=== PATIENT | female | born 1965 | race Caucasian/White ===

== ENCOUNTER 2018-01-23 08:00 | Inpatient (IN) | payer OTHER ==
[2018-01-23 09:44] LABS: Urine Appearance CLEAR; Urine Bilirubin NEGATIVE (NEG); Urine Blood TRACE (NEG); Urine Color YELLOW; Urine Glucose NEGATIVE (NEG); Urine Protein NEGATIVE (NEG); Urine Urobilinogen 0.2 mg/dL (0.2-1.0)
[2018-01-23 09:46] LABS: Urine Microscopic Reflex ORDER UMIC
[2018-01-23 09:50] LABS: Absolute Lymphocytes (CBC) 1.6 K/uL (0.7-4.9); Absolute Monocytes 0.4 K/uL (0.1-1.3); Absolute Neutrophil 3.5 K/uL (1.8-8.0); Basophils % 1.1 % (0-1.3); Hematocrit 38.7 % (36.0-45.0); Lymphocytes % 27.8 % (15.3-44.8); MCH 29.6 pg (27.0-35.0); MCV 87.9 fL (80-100); MPV 7.9 fL (7.6-11.3); Monocytes % 6.5 % (3.3-12.3)
[2018-01-23 09:55] LABS: Potassium 4.1 mmol/L (3.5-5.1)
[2018-01-23 09:56] LABS: Protime INR 1.04
[2018-01-23 10:00] LABS: Urine Bacteria 20-50 /HPF (<20); Urine Culture Reflex Order REFLEXED; Urine Mucus 1+ /HPF (NONE SEEN)
--- NOTE | 2018-01-23 10:36 | RAD REPORT ---
EXAM DESCRIPTION: RAD - Chest Pa And Lat (2 Views) - 01/23/2018 9:53 am CLINICAL HISTORY: preop Chest pain. COMPARISON: Chest Pa And Lat (2 Views) dated 05/26/2016; CHEST SINGLE VIEW dated 01/07/2014; CHEST PA AND LAT 2 VIEW dated 10/23/2008; CHEST PA AND LAT 2 VIEW dated 08/11/2004 FINDINGS: The lungs are clear. The heart is normal in size. No displaced fractures. Gastric banding noted. IMPRESSION: No acute or concerning finding suspected.
--- NOTE | 2018-01-23 12:10 | EKG ---
Test Date: 2018-01-23 Test Time: 09:37:51 [place] Cutter: JHOAN MEASUREMENT RESULTS: Intervals: Rate: 68 WI: 148 QRSD: 74 QT: 420 QTc: 446 [place]: P: 35 WI: 148 QRS: 21 T: 22 INTERPRETIVE STATEMENTS: Normal sinus rhythm Low voltage QRS Borderline ECG Compared to ECG 01/07/2014 12:47:19 Low QRS voltage now present Electronically Signed On 01-23-18 12:09:51 CDT by Kenton Patel
--- OUTSIDE RECORDS SUMMARY | 2018-01-26 09:33 | XMS REPORT ---
:1965 Author Organization eClinicalWorks Care Team Providers Name Role Phone Ananth Pillai Provider Role Unavailable Allergies, Adverse Reactions, Alerts Substance Reaction Event Type codeine Info Not Available Drug Allergy Problems Problem Type Condition Code Onset Dates Condition Status Assessment Pain in right knee M25.561 Active Assessment Other chronic pain G89.29 Active Assessment Pain in left knee M25.562 Active Assessment Primary osteoarthritis of right M17.11 Active knee Assessment Primary osteoarthritis of left knee M17.12 Active Problem Primary osteoarthritis of right M17.11 Active knee Problem Primary osteoarthritis of both M17.0 Active knees Problem Primary osteoarthritis of left knee M17.12 Active Problem Pain in left knee M25.562 Active Problem Pain in right knee M25.561 Active Problem Other chronic pain G89.29 Active Medications Medication Code Code Instructions Start End Status Dosage System Date Date Amoxicillin [facility] 41668616578 500 MG Oral Active TK 2 CS PO BID Clarithromycin [facility] 47218346300 500 MG Oral Active TK 1 T PO BID FOR [address] DAYS Triamterene-HCTZ [facility] 86954527973 37.5-25 MG Active TK 1 T PO QD Oral Metoclopramide [facility] 41072121135 10 MG Oral Active TK UTD PER HCl YOUR COLONOSCOPY PREP PACKET Suprep Bowel Prep [facility] 65970472639 17.5-3.13-1.6 Active U UTD BY YOUR Kit GM/180ML Oral COLONOSCOPY PACKET INSTRUCTIONS Phentermine HCl [facility] 40285671726 37.5 MG Oral Active (Schedule IV Drug) TK [address] PO [address]. Omep[address] [facility] 45005882950 40 MG Oral Active TK ONE C PO D Results No Known Results Summary Purpose eClinicalWorks Submission
--- OUTSIDE RECORDS SUMMARY | 2018-01-26 09:33 | XMS REPORT ---
:1965 Author Organization eClinicalWorks Care Team Providers Name Role Phone Ananth Pillai Provider Role Unavailable Allergies, Adverse Reactions, Alerts Substance Reaction Event Type codeine Info Not Available Drug Allergy Problems Problem Type Condition Code Onset Dates Condition Status Assessment Pain in left knee M25.562 Active Assessment Primary osteoarthritis of left knee M17.12 Active Problem Primary osteoarthritis of right M17.11 Active knee Problem Primary osteoarthritis of both M17.0 Active knees Problem Primary osteoarthritis of left knee M17.12 Active Problem Pain in left knee M25.562 Active Problem Pain in right knee M25.561 Active Problem Other chronic pain G89.29 Active Medications Medication Code System Code Instructions Start Date End Date Status Dosage Omeprazole NDC 0 Active not defined Results No Known Results Summary Purpose eClinicalWorks Submission
--- OUTSIDE RECORDS SUMMARY | 2018-01-26 09:33 | XMS REPORT ---
:1965 Author Organization eClinicalWorks Care Team Providers Name Role Phone PillaiAnanth Provider Role Unavailable Allergies, Adverse Reactions, Alerts Substance Reaction Event Type codeine Info Not Available Drug Allergy Problems Problem Type Condition Code Onset Dates Condition Status Assessment Primary osteoarthritis of left knee M17.12 Active Assessment Pain in left knee M25.562 Active Problem Primary osteoarthritis of right M17.11 Active knee Problem Primary osteoarthritis of both M17.0 Active knees Problem Primary osteoarthritis of left knee M17.12 Active Problem Pain in left knee M25.562 Active Problem Pain in right knee M25.561 Active Problem Other chronic pain G89.29 Active Medications Medication Code Code Instructions Start End Status Dosage System Date Date Omeprazole [facility] 42231838675 40 MG Oral Active TK ONE C PO D Amoxicillin [facility] 39349821985 500 MG Oral Active TK 2 CS PO BID Phentermine HCl [facility] 87617474340 37.5 MG Oral Active (Schedule IV Drug) TK 1 T PO QD. Suprep Bowel Prep [facility] 39628305140 17.5-3.13-1.6 Active U UTD BY YOUR Kit GM/180ML Oral COLONOSCOPY PACKET INSTRUCTIONS Clarithromycin [facility] 00619283663 500 MG Oral Active TK 1 T PO BID FOR 14 DAYS Metoclopramide [facility] 43405817226 10 MG Oral Active TK UTD PER HCl YOUR COLONOSCOPY PREP PACKET Triamterene-HCTZ [facility] 30522979831 37.5-25 MG Active TK 1 T PO QD Oral Results No Known Results Summary Purpose eClinicalWorks Submission
--- OUTSIDE RECORDS SUMMARY | 2018-01-26 09:33 | XMS REPORT ---
:1965 Author Organization eClinicalWorks Care Team Providers Name Role Phone Pillai Ananth Provider Role Unavailable Allergies, Adverse Reactions, Alerts Substance Reaction Event Type codeine Info Not Available Drug Allergy Problems Problem Type Condition Code Onset Dates Condition Status Assessment Primary osteoarthritis of right M17.11 Active knee Assessment Pain in right knee M25.561 Active Assessment Primary osteoarthritis of left knee M17.12 Active Problem Other chronic pain G89.29 Active Problem Pain in left knee M25.562 Active Problem Pain in right knee M25.561 Active Assessment Pain in left knee M25.562 Active Assessment Other chronic pain G89.29 Active Problem Primary osteoarthritis of both M17.0 Active knees Medications Medication Code Code Instructions Start End Status Dosage System Date Date Omeprazole [facility] 79645564448 40 MG Oral Active TK ONE C PO D Clarithromycin [facility] 04131087513 500 MG Oral Active TK 1 T PO BID FOR 14 DAYS Triamterene-HCTZ [facility] 08683990741 37.5-25 MG Active TK 1 T PO QD Oral Amoxicillin ND 24744718062 500 MG Oral Active TK 2 CS PO BID Suprep Bowel Prep [facility] 96883464877 17.5-3.13-1.6 Active U UTD BY YOUR Kit GM/180ML Oral COLONOSCOPY PACKET INSTRUCTIONS Metoclopramide [facility] 99660338127 10 MG Oral Active TK UTD PER HCl YOUR COLONOSCOPY PREP PACKET Phentermine HCl [facility] 13291506056 37.5 MG Oral Active (Schedule IV Drug) TK 1 T PO QD. Results No Known Results Summary Purpose eClinicalWorks Submission
[2018-01-26] MEDS ORDERED: Ringers Lactate 1,000 ML IV ONE ×2 (10:01→13:31)
[2018-01-26] MEDS ORDERED: MIDAZOLAM HCL 2 MG/2 ML INJ ONE ×2 (10:50→14:35)
[2018-01-26] MEDS ORDERED: DEXAMETHASONE 4 MG/ML VIAL ONE (10:50)
[2018-01-26] MEDS ORDERED: ROPLVACAINE HCL 20 ML ONE (10:54)
[2018-01-26] MEDS ORDERED: FENTANYL CITR 250 MCG/5 ML ONE (10:57)
[2018-01-26] MEDS ORDERED: BACITRACIN 50000 UNIT VIAL ONE (11:24)
[2018-01-26] MEDS ORDERED: TRANEXAMIC ACID 1,000 MG in NA CHLORIDE 0.9% 50 ML IV SCH (11:30)
[2018-01-26] MEDS: CEFAZOLIN/SWI 1gm 2 GM/20 ML SYR ONE ×2 (12:00→12:46)
[2018-01-26] MEDS ORDERED: LIDOCAINE 2% MPF 5 ML VIAL ONE (12:09)
[2018-01-26] MEDS ORDERED: PROPOFOL 200 MG/20 ML VIAL IV ONE (12:09)
[2018-01-26] MEDS ORDERED: ONDANSETRON HCL 40 MG/20 ML VIAL ONE (12:10)
[2018-01-26] MEDS ORDERED: Phenylephrine HCl 10 MG/ML 1 ML VIAL ONE (13:22)
[2018-01-26] MEDS ORDERED: NS 0.9% VIAL 40 ML ONE (13:23)
[2018-01-26] MEDS: HYDROMORPHONE HCL 1 MG/ML INJ ONE ×4 (14:05→14:20)
[2018-01-26 14:15] LABS: Hematocrit 35.3 % (36.0-45.0)
[2018-01-26] MEDS ORDERED: FENTANYL CITR 100 MCG/2 ML ONE (14:50)
--- NOTE | 2018-01-26 14:52 | RAD REPORT ---
EXAM DESCRIPTION: RAD - Knee Left 2 View - 01/26/2018 2:21 pm CLINICAL HISTORY: Placement of left total knee prosthesis COMPARISON: None. FINDINGS: A left total knee arthroplasty has been performed. Hardware is in expected location. A kyleigh gical drain is in place. Skin camila are noted. IMPRESSION: Postoperative left knee with no unexpected finding.
[2018-01-26] MEDS ORDERED: ONDANSETRON 4 MG/2 ML VIAL IV PRN ×2 (14:53→19:28)
[2018-01-26] MEDS ORDERED: MORPHINE/NS PCA 50 MG/50 ML PCA.SYRING IV PRN (14:56)
[2018-01-26] MEDS: CEFAZOLIN/SWI 1gm 1 GM/10 ML SYR IV SCH (17:55)
[2018-01-26] MEDS ORDERED: MORPHINE 2 MG/ML SYR IV ONE (18:46)
[2018-01-26] MEDS: PROMETHAZINE 25 MG/ML VIAL IV PRN (19:45)
[2018-01-26] MEDS: DOCUSATE NA 100 MG CAP PO SCH (21:18)
[2018-01-27] MEDS: CEFAZOLIN/SWI 1gm 1 GM/10 ML SYR IV SCH (01:41)
--- NOTE | 2018-01-27 01:59 | OP ---
Surgeon: Alton Machado MD Preoperative Diagnosis: Left knee degenerative joint disease. Postoperative Diagnosis: Left knee degenerative joint disease. Procedure Performed: Left total knee replacement. Pool Player: JOHN Sloan. Complications: None. Disposition: Recovery room, stable. Procedure In Detail: The patient was taken to the operative suite, placed in supine position, induce d anesthesia. Left knee was prepped and draped in usual sterile fashion. No qualified resident was available. A midline skin incision, medial parapatellar arthrotomy. AP and chamfer cuts made from intramedullary reference for 60 mm femoral component. Proximal tibia was resected 4 mm off the most involved side for 67 base plate. Trial with a 10 poly gave perfect balance of the posterio r flexion gaps. A 31 patella was appropriate. Cemented technique was reserved for patella only with a supplemental screw fixation for the tibia. Permanent implants were placed. Layered closure was p erformed. Hemovac drain was placed above the fascia. Skin closure was performed. The patient was b eing reversed from anesthesia at this time. JENNA/AMANDA Voice ID: [id number] Report ID: [id number]
[2018-01-27] MEDS: RIVAROXABAN 10 MG TABLET PO SCH (06:05)
[2018-01-27 07:05] LABS: Hematocrit 31.9 % (36.0-45.0)
[2018-01-27] MEDS ORDERED: Ringers Lactate 1,000 ML IV ONE (07:49)
--- NOTE | 2018-01-27 08:12 | P.PN ---
Subjective Date of Service: 01/27/18 Subjective: No C/O voiced, Tolerating diet, Ambulating, Improving, Doing well ( pain under control at this time up with p.t. can be d/cd any time after this evem=kev) Physical Examination - Vital Signs Temperature: 98.4 F Blood Pressure: 108/58 Pulse: 81 Respirations: 16 Pulse Ox (%): 96 - Studies Laboratory Data (last 24 hrs) 01/27/18 06:02: Hgb 10.7 L, Hct 31.9 L 01/26/18 13:55: Hgb 11.7 L, Hct 35.3 L
[2018-01-27] MEDS: HYDROCODONE/APAP 7.5/325 MG TAB PO PRN ×3 (09:42→21:11)
[2018-01-27] MEDS: DOCUSATE NA 100 MG CAP PO SCH ×2 (09:42→21:11)
--- NOTE | 2018-01-27 11:45 | P.PN ---
Subjective Date of Service: 01/27/18 Chief Complaint: TKR Subjective: Tolerating diet, Ambulating, Improving, Working w/ PT, Doing well Review of Systems 10-point ROS is otherwise unremarkable Physical Examination - Vital Signs Temperature: 98.4 F Blood Pressure: 108/58 Pulse: 81 Respirations: 16 Pulse Ox (%): 96 - Physical Exam General: Alert, In no apparent distress HEENT: Atraumatic, PERRLA, EOMI Neck: Supple, JVD not distended Respiratory: Clear to auscultation bilaterally, Normal air movement Cardiovascular: Regular rate/rhythm, Normal S1 S2 Gastrointestinal: Normal bowel sounds, No tenderness Musculoskeletal: Other (Left Knee Wrapped with Breezy bandage. PENNY drain with Serasangious Fluids ) Integumentary: No rashes Neurological: Normal speech, Normal tone, Normal affect Lymphatics: No axilla or inguinal lymphadenopathy - Studies Laboratory Data (last 24 hrs) 01/27/18 06:02: Hgb 10.7 L, Hct 31.9 L 01/26/18 13:55: Hgb 11.7 L, Hct 35.3 L Medications List Reviewed: Yes Assessment And Plan - Current Problems (Diagnosis) (1) Status post total left knee replacement Current Visit: Yes Status: Acute Plan: S/p TKR with ortho -PT consulted. -Pain mgmt -CPM and Plan per Ortho (2) HTN (hypertension) Current Visit: Yes Status: Acute Plan: No H/o HTN. Low BP -Continue to monitor. Qualifiers: Hypertension type: essential hypertension Qualified Code(s): I10 - Essential (primary) hypertension Discharge Plan: Other Plan to discharge in: 72 Hours - Code Status/Comfort Care Code Status Assessed: Yes Critical Care: No
[2018-01-27] MEDS: PROMETHAZINE 25 MG/ML VIAL IV PRN (18:20)
[2018-01-28] MEDS: HYDROCODONE/APAP 7.5/325 MG TAB PO PRN ×6 (00:58→19:57)
--- NOTE | 2018-01-28 03:43 | P.CNS ---
Date of Consult: 01/26/18 Reason for Consult: Medical management Requesting Physician: Alton Machado Chief Complaint: TKR History of Present Illness: Patient is a 52-year-old female who presents to the hospital with a total knee replacement. She has tolerated the procedure well however after the procedure she has had difficulty with her pain medication. She has also had nausea. We were consulted to help provide medical assistance in her management. Patient denies any other medical issues. She has severe osteoarthritis, and she was unable to ambulate any longer. She started having back pain and hip pain. She was originally seeing a different physician were she was receiving injections which was not benefitting her so she got a 2nd opinion. Decision was made for a total knee replacement as she was unable to do her job effectively and her quality of life was suffering significantly. Allergies tramadol Allergy (Verified 01/23/18 08:41) agitation, nausea Home Medications: NK [No Home Meds] 01/23/18 - Past Medical/Surgical History Diabetic: No -: h.pylori 05/2017 -: athroscopic surgery YANCY knees -: lap band -: tonsillectomy - Family History Mother Medical History: Heart disease, Lung disease, Cancer Notes: COPD, CHF, LUPUS Father Medical History: Lung disease Notes: asthma - Social History Alcohol use: Yes CD- Drugs: No Caffeine use: Yes Place of Residence: Home Review of Systems 10-point ROS is otherwise unremarkable Physical Examination Temp Pulse Resp BP Pulse Ox 98.2 F 88 16 128/63 97 01/28/18 00:00 01/28/18 00:00 01/28/18 00:00 01/28/18 00:00 01/27/18 20:00 General: Alert, In no apparent distress, Oriented x3 HEENT: Atraumatic, PERRLA, Mucous membr. moist/pink, EOMI, Sclerae nonicteric Neck: Supple, 2+ carotid pulse no bruit, No LAD, Without JVD or thyroid abnormality Respiratory: Clear to auscultation bilaterally, Normal air movement Cardiovascular: Regular rate/rhythm, Normal S1 S2, No murmurs Gastrointestinal: Normal bowel sounds, Soft and benign, Non-distended, No tenderness Musculoskeletal: No clubbing, No swelling, Tenderness Integumentary: No rashes Neurological: Normal gait, Normal speech, Normal strength at 5/5 x4 extr, Normal tone, Normal affect Lymphatics: No axilla or inguinal lymphadenopathy Laboratory Data (last 24 hrs) 01/27/18 06:02: Hgb 10.7 L, Hct 31.9 L - Problems (1) Status post total left knee replacement Current Visit: Yes Status: Acute Conclusions/ Impression: Plan: 1. Gentle hydration 2. Pain control 3. Physical therapy 4. Passive range of motion 5. Anti emetics 6. Diet as tolerated 7. GI and DVT prophylaxis Critical Care: No Time Spent Managing Pts care (In Minutes): 50
[2018-01-28] MEDS: RIVAROXABAN 10 MG TABLET PO SCH (05:00)
[2018-01-28 06:27] LABS: Hematocrit 28.3 % (36.0-45.0)
[2018-01-28] MEDS: DOCUSATE NA 100 MG CAP PO SCH ×2 (08:45→20:01)
--- NOTE | 2018-01-28 14:57 | P.PN ---
Subjective Date of Service: 01/28/18 Chief Complaint: TKR Subjective: Tolerating diet, Ambulating, Improving, Working w/ PT, Doing well Review of Systems 10-point ROS is otherwise unremarkable Physical Examination - Vital Signs Temperature: 99.3 F Blood Pressure: 133/62 Pulse: 108 Respirations: 16 Pulse Ox (%): 94 - Physical Exam General: Alert, In no apparent distress HEENT: Atraumatic, PERRLA, EOMI Neck: Supple, JVD not distended Respiratory: Clear to auscultation bilaterally, Normal air movement Cardiovascular: Regular rate/rhythm, Normal S1 S2 Gastrointestinal: Normal bowel sounds, No tenderness Musculoskeletal: Other (Left Knee Wrapped with JOSE JUAN wrap. PENNY drain in place. ) Integumentary: No rashes Neurological: Normal speech, Normal tone, Normal affect Lymphatics: No axilla or inguinal lymphadenopathy - Studies Laboratory Data (last 24 hrs) 01/28/18 06:02: Hgb 9.6 L, Hct 28.3 L Medications List Reviewed: Yes Assessment And Plan - Current Problems (Diagnosis) (1) Status post total left knee replacement Current Visit: Yes Status: Acute Plan: S/p TKR with ortho -PT consulted. -Pain mgmt - Considering DC of pump and Switch to PO norco -CPM and Plan per Ortho (2) HTN (hypertension) Current Visit: Yes Status: Acute Plan: No H/o HTN. Low BP -Continue to monitor. Qualifiers: Hypertension type: essential hypertension Qualified Code(s): I10 - Essential (primary) hypertension Discharge Plan: Home Plan to discharge in: 48 Hours - Code Status/Comfort Care Code Status Assessed: Yes Critical Care: No
--- NOTE | 2018-01-28 15:44 | P.PN ---
Subjective Date of Service: 01/28/18 Chief Complaint: TKR Subjective: No new changes Review of Systems 10-point ROS is otherwise unremarkable Physical Examination - Vital Signs Temperature: 99.3 F Blood Pressure: 133/62 Pulse: 108 Respirations: 16 Pulse Ox (%): 94 - Physical Exam General: In no apparent distress, Oriented x3 HEENT: Atraumatic, Normocephalic Respiratory: Normal air movement Cardiovascular: No edema Musculoskeletal: Other (dressing intact right leg) - Studies Laboratory Data (last 24 hrs) 01/28/18 06:02: Hgb 9.6 L, Hct 28.3 L Medications List Reviewed: Yes Assessment And Plan - Plan s/p tkr stable poor paain control, home tomorrow am Discharge Plan: Home Plan to discharge in: 24 Hours
[2018-01-29] MEDS: HYDROCODONE/APAP 7.5/325 MG TAB PO PRN ×2 (04:29→16:04)
[2018-01-29] MEDS: RIVAROXABAN 10 MG TABLET PO SCH (05:56)
[2018-01-29 05:59] LABS: Hematocrit 27.6 % (36.0-45.0)
[2018-01-29] MEDS: DOCUSATE NA 100 MG CAP PO SCH ×2 (08:18→21:08)
--- NOTE | 2018-01-29 11:14 | P.PN ---
Subjective Date of Service: 01/29/18 Chief Complaint: TKR Subjective: Tolerating diet, Ambulating, Improving, Working w/ PT, Doing well Review of Systems 10-point ROS is otherwise unremarkable Physical Examination - Vital Signs Temperature: 99.5 F Blood Pressure: 119/58 Pulse: 82 Respirations: 16 Pulse Ox (%): 95 - Physical Exam General: Alert, In no apparent distress HEENT: Atraumatic, PERRLA, EOMI Neck: Supple, JVD not distended Respiratory: Clear to auscultation bilaterally, Normal air movement Cardiovascular: Regular rate/rhythm, Normal S1 S2 Gastrointestinal: Normal bowel sounds, No tenderness Musculoskeletal: Swelling, Tenderness Integumentary: No rashes Neurological: Normal speech, Normal tone, Normal affect Lymphatics: No axilla or inguinal lymphadenopathy - Studies Laboratory Data (last 24 hrs) 01/29/18 05:34: Hgb 9.5 L, Hct 27.6 L Medications List Reviewed: Yes Assessment And Plan - Current Problems (Diagnosis) (1) Status post total left knee replacement Current Visit: Yes Status: Acute Plan: S/p TKR with ortho -PT consulted. -Pain mgmt with PO meds -CPM and Plan per Ortho (2) HTN (hypertension) Current Visit: Yes Status: Acute Plan: No H/o HTN. Low BP -Continue to monitor. Qualifiers: Hypertension type: essential hypertension Qualified Code(s): I10 - Essential (primary) hypertension Discharge Plan: Home Plan to discharge in: 48 Hours - Code Status/Comfort Care Code Status Assessed: Yes Critical Care: No
[2018-01-29] MEDS ORDERED: ONDANSETRON 4 MG (ODT) TAB PO PRN (15:31)
[2018-01-29 22:11] VITALS: O2SAT 97
[2018-01-30] MEDS: HYDROCODONE/APAP 7.5/325 MG TAB PO PRN ×4 (00:08→21:29)
[2018-01-30 04:58] LABS: Hematocrit 28.1 % (36.0-45.0)
[2018-01-30] MEDS: RIVAROXABAN 10 MG TABLET PO SCH (05:43)
[2018-01-30] MEDS: DOCUSATE NA 100 MG CAP PO SCH (08:06)
--- NOTE | 2018-01-30 19:24 | PN ---
Date of Progress Note: 01/30/2018 Subjective: The patient seen and examined. Chart reviewed and case discussed with RN. The patient is working with PT, however, still having significant amount of pain. The patient requesting pain medication and was doing well. Awaiting rehab placement. Review of Systems: Negative except as above. Medications: List reviewed. Physical Examination: Vital Signs: Temperature 97.4, heart rate 81, blood pressure 108/52, respirations 18, O2 98% on room air. General: Awake, alert, oriented x3, in mild distress due to pain. Obese female. CV: S1, S2. No murmurs. Regular rate and rhythm. Peripheral pulses present. Respiratory: Moving air well bilaterally. No wheezing. Gastrointestinal: Abdomen is soft, nontender, nondistended. Positive bowel sounds. Extremities: No clubbing, cyanosis. Mild edema in the left lower extremity. Musculoskeletal: Left knee incision in fact clean, dry, and intact. Neuro: Nonfocal. Laboratory Data: H and H 9.5 and 28.1. Urine culture showing mixed miguel ángel. Assessment/plan: A 52-year-old female with: 1. Status post total left knee replacement. Continue physical therapy and she was doing well. Continue pain management. May need to adjust medications due to uncontrol pain while the patient is undergoing activity. The patient has been referred to rehab. Awaiting placement. 2. Essential hypertension. Currently blood pressure is on the low side with systolic 108. Hold blood pressure medications; not symptomatic at this time. We will continue to monitor. 3. Obesity, BMI 33. 4. Acute blood loss anemia. Hemoglobin dropped from 13 to 9.5, likely due to recent procedure. We will continue to monitor H and H. No need for transfusion at this time. Plan: Discharge to rehab once accepted. /AMANDA Voice ID: [id number] Report ID: [id number] AGUSTO
[2018-01-30 22:48] VITALS: BP 100/60; TEMP 97.9
--- NOTE | 2018-02-01 04:43 | DS ---
Date of Discharge: 01/30/2018 Experience Designer: Dr. Machado with Orthopedic Surgery. Procedure: On 01/26/2018, left total knee replacement. Admitting Diagnoses: 1.Status post total left knee replacement. 2.Intractable pain. 3.Severe osteoarthritis, multiple sites, generalized. 4.Obesity. Body mass index 33. Discharge Diagnoses: 1.Status post left total knee replacement. 2.Essential hypertension. 3.Obesity, body mass index 33. 4.Intractable pain, improved. 5.Acute blood loss anemia, secondary to procedure. 6.Severe osteoarthritis, generalized. Hospital Course: The patient is a 52-year-old female who came in with a total knee replacement on left by Dr. Machado. However, post procedure, the patient had significant pain which is intractab le. The patient was kept in the hospital for pain management. She was slowly able to start with phy sical therapy. She does have severe osteoarthritis, which prompted her left knee replacement and the patient did well postoperatively. She did have some acute blood loss anemia. Postprocedure, her he moglobin dropped from 13 to 9.5; however, remained hemodynamically stable, did not require blood linder sfusion. The patient otherwise improved slowly. She was initially referred to inpatient rehab, [facility] after improvement in her condition and ability to work well with physical therapy she refused inp atient rehab and decided to go home with home health and PT. The patient otherwise is doing well. S he was cleared for discharge from orthopedic standpoint. The patient was discharged home with home ealt and PT to follow up with Dr. Machado in 7-10 days for wound check. Return to ER for worsening condition. Follow with PCP in 3-5 days. Medications: As per medication reconciliation list. The patient would be on Xarelto for deep vein t hrombosis prophylaxis. Diet: Heart healthy. Activity: Fall precautions as per Physical Therapy and ortho recommendations. For physical exam findings, please see progress note dictated on the day of discharge. Total time spent discharging the patient was 41 minutes. BRANDI Voice ID: [id number] Report ID: [id number]
== END 2018-01-30 21:36 | disposition home health service (06) | DRG 470 ==
LOC: EDSTATUS 08:00 → DSO 01-26 09:25 → 2ND 01-26 14:42
PROVIDERS: ADMIT Orthopaedic Surgery; ATTEND Family Medicine
PROC: 0SRD0J9 Replacement of Left Knee Joint with Synthetic Substitute, Cemented, Open Approach (ICD-10-PCS; principal; 2018-01-26 11:00)
DX: M17.12 Unilateral primary osteoarthritis, left knee (principal); T84.84XA Pain due to internal orthopedic prosthetic devices, implants and grafts, initial encounter; D62 Acute posthemorrhagic anemia; I10 Essential (primary) hypertension; G89.18 Other acute postprocedural pain; Y83.8 Other surgical procedures as the cause of abnormal reaction of the patient, or of later complication, without mention of misadventure at the time of the procedure; Y79.8 Miscellaneous orthopedic devices associated with adverse incidents, not elsewhere classified; Y92.230 Patient room in hospital as the place of occurrence of the external cause; E66.9 Obesity, unspecified; Z68.33 Body mass index [BMI] 33.0-33.9, adult; Z98.84 Bariatric surgery status
CPT/HCPCS: 36415; 71046; 80048; 81003; 81015; 85014; 85018; 85025; 85610; 85730; 86850; 86900; 86901; 87086; 87088; 93005; 97163; J0690; J1170; J2250; J2270; J2370; J2405; J2550; J2704; J2795; J3010

== ENCOUNTER 2018-03-30 10:33 | Inpatient (IN) | payer OTHER ==
--- NOTE | 2018-03-20 14:44 | RAD REPORT ---
EXAM DESCRIPTION: RAD - Knee Right 2 View - 03/20/2018 2:12 pm CLINICAL HISTORY: Knee pain, preop examination pending knee surgery COMPARISON: None. FINDINGS: AP and lateral weight-bearing views of the right knee obtained. No fracture, dislocation o r periosteal reaction.No joint effusion seen. Significant medial compartment narrowing is present. Me dial and lateral compartment marginal spurs are present. Patella femoral joint space narrowing presen t with significant patella and femoral marginal spurs. No acute or destructive bone process. No forei gn body or soft tissue abnormality. IMPRESSION: Right knee advanced degenerative change involving the medial compartment and patellofemo ral joint space. No acute bone or joint finding. Clinical concerns for internal derangement or occult bony injury could be further assessed with MR imaging.
[2018-03-20 14:47] LABS: Absolute Lymphocytes (CBC) 1.8 K/uL (0.7-4.9); Absolute Monocytes 0.5 K/uL (0.1-1.3); Absolute Neutrophil 3.2 K/uL (1.8-8.0); Basophils % 1.1 % (0-1.3); Eosinophils % 3.1 % (0-4.4); Lymphocytes % 32.3 % (15.3-44.8); MPV 8.1 fL (7.6-11.3); Monocytes % 8.1 % (3.3-12.3); RBC Red Blood Cell Count 4.36 M/uL (3.86-4.86)
[2018-03-20 14:48] LABS: Potassium 4.1 mmol/L (3.5-5.1)
[2018-03-20 14:50] LABS: Urine Appearance CLEAR; Urine Bilirubin NEGATIVE (NEG); Urine Blood TRACE (NEG); Urine Color YELLOW; Urine Glucose NEGATIVE (NEG); Urine Protein NEGATIVE (NEG); Urine Urobilinogen 0.2 mg/dL (0.2-1.0)
[2018-03-20 14:52] LABS: Protime INR 1.09
[2018-03-20 14:58] LABS: Urine Microscopic Reflex ORDER UMIC
[2018-03-20 15:07] LABS: Urine RBC <5 /HPF (NONE SEEN)
[2018-03-20 15:08] LABS: Urine Bacteria <20 /HPF (<20); Urine Culture Reflex Order NOT NEEDED
--- OUTSIDE RECORDS SUMMARY | 2018-03-30 10:36 | XMS REPORT ---
[...] End Status Dosage System Date Date Omeprazole [facility] 56682273134 40 MG Oral Active TK ONE C PO D Clarithromycin [facility] 40892471456 500 MG Oral Active TK 1 T PO BID FOR 14 DAYS Triamterene-HCTZ [facility] 67619208199 37.5-25 MG Active TK 1 T PO QD Oral Amoxicillin ND 21046629422 500 MG Oral Active TK 2 CS PO BID Suprep Bowel Prep [facility] 62272068464 17.5-3.13-1.6 Active U UTD BY YOUR Kit GM/180ML Oral COLONOSCOPY PACKET INSTRUCTIONS Metoclopramide [facility] 00314732993 10 MG Oral Active TK UTD PER HCl YOUR COLONOSCOPY PREP PACKET Phentermine HCl [facility] 27374854941 37.5 MG Oral Active (Schedule IV Drug) TK 1 T PO QD. Results No Known Results Summary Purpose eClinicalWorks Submission
--- OUTSIDE RECORDS SUMMARY | 2018-03-30 10:36 | XMS REPORT ---
[...] End Status Dosage System Date Date Amoxicillin [facility] 67091884482 500 MG Oral Active TK 2 CS PO BID Clarithromycin [facility] 47292163662 500 MG Oral Active TK 1 T PO BID FOR 14 DAYS Triamterene-HCTZ [facility] 67195767245 37.5-25 MG Active TK 1 T PO QD Oral Metoclopramide [facility] 30376059191 10 MG Oral Active TK UTD PER HCl YOUR COLONOSCOPY PREP PACKET Suprep Bowel Prep [facility] 89796366024 17.5-3.13-1.6 Active U UTD BY YOUR Kit GM/180ML Oral COLONOSCOPY PACKET INSTRUCTIONS Phentermine HCl [facility] 46259585631 37.5 MG Oral Active (Schedule IV Drug) TK 1 T PO QD. Omeprazole [facility] 79165376626 40 MG Oral Active TK ONE C PO D Results No Known Results Summary Purpose eClinicalWorks Submission
--- OUTSIDE RECORDS SUMMARY | 2018-03-30 10:36 | XMS REPORT ---
[...] End Status Dosage System Date Date Omeprazole [facility] [id number] 40 MG Oral Active TK ONE C PO D Amoxicillin [facility] 25546515700 500 MG Oral Active TK 2 CS PO BID Phentermine HCl [facility] 17118661204 37.5 MG Oral Active (Schedule IV Drug) TK 1 T PO QD. Suprep Bowel Prep [facility] 90104181444 17.5-3.13-1.6 Active U UTD BY YOUR Kit GM/180ML Oral COLONOSCOPY PACKET INSTRUCTIONS Clarithromycin [facility] 99564751455 500 MG Oral Active TK 1 T PO BID FOR 14 DAYS Metoclopramide [facility] 06680687470 10 MG Oral Active TK UTD PER HCl YOUR COLONOSCOPY PREP PACKET Triamterene-HCTZ [facility] [id number] 37.5-25 MG Active TK 1 T PO QD Oral Results No Known Results Summary Purpose eClinicalWorks Submission
--- OUTSIDE RECORDS SUMMARY | 2018-03-30 10:36 | XMS REPORT ---
:1965 [facility] Organization [facility] Address [address] [place] [address] Dr. Snider [address] [place] [id number] Care Team Providers Name Role Phone Unavailable Unavailable Unavailable Problems This patient has no known problems. Allergies, Adverse Reactions, Alerts This patient has no known allergies or adverse reactions. Medications This patient has no known medications.
[2018-03-30] MEDS ORDERED: CEFAZOLIN 1GM (PREMIX IV) 1 GM/50 ML BAG ONE ×2 (10:49→12:02)
[2018-03-30] MEDS ORDERED: Ringers Lactate 1,000 ML IV ONE ×2 (10:49→13:33)
[2018-03-30] MEDS ORDERED: DEXAMETHASONE 10 MG/ML VIAL ONE ×2 (11:41→12:57)
[2018-03-30] MEDS ORDERED: LIDOCAINE 2% MPF 5 ML VIAL ONE ×2 (11:41→12:56)
[2018-03-30] MEDS ORDERED: ROPLVACAINE HCL 20 ML ONE (11:42)
[2018-03-30] MEDS ORDERED: NALOXONE 0.4 MG/ML VIAL IV PRN (12:22)
[2018-03-30] MEDS ORDERED: DOCUSATE NA 100 MG CAP PO PRN (12:22)
[2018-03-30] MEDS ORDERED: ONDANSETRON 4 MG/2 ML VIAL IV PRN (12:22)
[2018-03-30] MEDS ORDERED: MORPHINE/NS PCA 50 MG/50 ML PCA.SYRING IV PRN (12:22)
[2018-03-30] MEDS ORDERED: HYDROCODONE/APAP 7.5/325 MG TAB PO PRN (12:22)
[2018-03-30] MEDS ORDERED: TRANEXAMIC ACID 1,000 MG in NA CHLORIDE 0.9% 50 ML IV ONE (12:30)
[2018-03-30] MEDS ORDERED: PROPOFOL 200 MG/20 ML VIAL IV ONE (12:56)
[2018-03-30] MEDS ORDERED: ROCURONIUM 50 MG/5 ML VIAL IV ONE (12:56)
[2018-03-30] MEDS ORDERED: FENTANYL CITR 100 MCG/2 ML ONE (12:56)
[2018-03-30] MEDS ORDERED: HYDROMORPHONE HCL 2 MG/ML inj ONE (12:56)
[2018-03-30] MEDS ORDERED: MIDAZOLAM HCL 2 MG/2 ML INJ ONE (12:56)
[2018-03-30] MEDS ORDERED: KETAMINE HCL 500 MG/5 ML VIAL ONE (12:57)
[2018-03-30] MEDS ORDERED: ONDANSETRON 4 MG/2 ML VIAL ONE (13:00)
[2018-03-30] MEDS ORDERED: GLYCOPYRROLATE 0.2 MG/ML SYR ONE (14:23)
[2018-03-30] MEDS ORDERED: NEOSTIGMINE 1 MG/ML -5 ML SYRINGE ONE (14:26)
[2018-03-30] MEDS: Ringers Lactate 1,000 ML IV ONE ×2 (15:15→15:20)
[2018-03-30] MEDS: MEPERIDINE HCL 50 MG/ML AMP ONE ×4 (15:15→15:30)
--- NOTE | 2018-03-30 15:25 | RAD REPORT ---
EXAM DESCRIPTION: RAD - Knee Right 2 View - 03/30/2018 3:05 pm CLINICAL HISTORY: Right knee surgery FINDINGS: Postsurgical changes of a right knee arthroplasty. Right knee prosthesis is in good position. No fracture or dislocation seen
[2018-03-30 17:14] VITALS: BMI 32.5
[2018-03-30] MEDS: CEFAZOLIN 1GM (PREMIX IV) 1 GM/50 ML BAG IV SCH (17:30)
[2018-03-31] MEDS: CEFAZOLIN 1GM (PREMIX IV) 1 GM/50 ML BAG IV SCH ×2 (01:16→09:00)
--- NOTE | 2018-03-31 01:17 | OP ---
Surgeon: Alton Machado MD Fish Smoker: Seat Trimmer: JOHN Sloan Preoperative Diagnosis: Right knee degenerative arthritis. Postoperative Diagnosis: Right knee degenerative arthritis. Procedure Performed: Right total knee replacement. Complications: None. Disposition: Recovery room, stable. Operative Report In Detail: The patient was taken to the operative suite, placed in supine position, induced anesthesia. Right knee was prepped and draped in usual sterile fashion. Midline skin incis ion created medial parapatellar arthrotomy distally. AP and chamfer cuts made from intramedullary re ference followed by 4 mm resection off the most involved side of the tibia. We had previously done h er other side. PCL was incompetent. Box was cut. A 10 poly gave excellent range of motion and tate nce. Porous ingrowth technique selected for the tibia with four 30 mm screws supplemental fixation. The set femur was cemented into place. A 10 poly placed. A layered closure was performed after tati cement of a 31 cemented patella. Excellent range of motion and balance of knee was noted. The patie nt is being reversed from anesthesia at the time of this dictation. JENNA/AMANDA Voice ID: [id number] Report ID: [id number]
[2018-03-31 05:41] LABS: Hematocrit 31.6 % (36.0-45.0)
[2018-03-31] MEDS: ENOXAPARIN 30 MG/0.3 ML SQ SCH ×3 (06:38→20:28)
[2018-03-31] MEDS ORDERED: BISACODYL 10 MG RECTAL SUPP PR PRN (09:10)
[2018-03-31] MEDS ORDERED: POLYETHYL GLY 3350 17 GM/DOSE PO PRN (09:10)
[2018-03-31] MEDS ORDERED: ZOLPIDEM TARTRATE 5 MG TABLET PO PRN (11:05)
--- NOTE | 2018-03-31 11:38 | P.PN ---
Subjective Date of Service: 03/31/18 Subjective: No new changes, Ambulating, Improving, New changes (probable d/c tomorrow am) Physical Examination - Vital Signs Temperature: 99.3 F Blood Pressure: 130/62 Pulse: 75 Respirations: 20 Pulse Ox (%): 100 - Studies Laboratory Data (last 24 hrs) 03/31/18 05:19: Hgb 10.8 L, Hct 31.6 L D
[2018-03-31] MEDS: POLYETHYL GLY 3350 17 GM/DOSE PO SCH (14:23)
--- NOTE | 2018-03-31 14:36 | CON ---
Date of Consultation: 03/31/2018 Reason For Consultation: Medical management. History Of Present Illness: The patient is a 53-year-old female with past medical history of degener ative osteoarthritis of the knees and asthma, well controlled with rescue inhaler, who comes in for e lective surgery for her right knee and successfully underwent a total right knee replacement. The tara polk has been doing well postoperatively. Her pain is well controlled. Hospitalist service was con sulted for medical management. When seen on the floor, the patient was awake, alert, oriented x3. P ain well controlled. Past Medical History: Intermittent asthma. Osteoarthritis of the knees. Past Surgical History: Left total knee replacement 6 weeks ago and recent right knee surgery. Allergies: TO TRAMADOL. Medications: List reviewed. Family History: COPD in the family. Mother had cancer. Social History: The patient denies any tobacco use. Drinks socially. No illicit drug use. 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 Independent in her activities of daily living. Review of Systems: Ten point system reviewed, negative except as per HPI. Physical Examination: Vital Signs: Temperature 99.3, heart rate 75, blood pressure 130/62, respirations 20, O2 100% on behzad m air. General: Awake, alert, oriented x3. In mild distress due to pain. Obese female. HEENT: Normocephalic, atraumatic. PERRLA. EOMI. Moist mucous membranes. Oropharynx is clear. No rmal dentition. Conjunctiva is anicteric. Neck: Supple. No JVD. Trachea midline. CV: S1, S2. Regular rate and rhythm. Peripheral pulses present. No murmurs. Respiratory: Moving air well bilaterally. No wheezing or stridor. No use of accessory muscles. Gastrointestinal: Abdomen is soft, nontender, nondistended. Positive bowel sounds, but no guarding or rigidity. Extremities: No clubbing, cyanosis, or edema. No calf tenderness. Musculoskeletal: Right knee incision site bandaged. Leg in Breezy wrap. Neuro: Cranial nerves 2 through 12 intact grossly. No focal neurological deficit. Speech is normal . Skin: No rashes. Normal skin turgor. Laboratory Data: H and H 10.8 and 31.6. Knee x-ray from 03/22/2018 shows postsurgical changes and r ight knee arthroplasty. Right knee prosthesis in good position. No fracture or dislocation. Assessment And Plan: A 53-year-old female with: 1.Right knee total arthroplasty, doing well postoperatively on Lovenox for deep venous thrombosis pr ophylaxis. 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 Machado. 2.Postoperative anemia. We will monitor H and H, transfuse as needed. 3.Intermittent asthma, well controlled. Use albuterol p.r.n. 4.Obesity. BMI 32.6. 5.Gastrointestinal and deep venous thrombosis prophylaxes, addressed. Thank you for allowing us to participate in the care of your patient. We will follow along with you. BRANDI Voice ID: [id number] Report ID: [id number]
[2018-03-31 15:07] LABS: Urine Appearance CLEAR; Urine Bilirubin NEGATIVE (NEG); Urine Blood NEGATIVE (NEG); Urine Color YELLOW; Urine Glucose NEGATIVE (NEG); Urine Protein NEGATIVE (NEG); Urine Specific Gravity <=1.005 (1.005-1.030); Urine Urobilinogen 0.2 mg/dL (0.2-1.0); Urine pH 6.5 (5.0-7.0)
[2018-03-31 15:09] LABS: Urine Microscopic Reflex NO UMIC
[2018-03-31] MEDS: DOCUSATE NA 100 MG CAP PO SCH (20:28)
[2018-04-01 06:10] LABS: Hematocrit 27.1 % (36.0-45.0)
[2018-04-01 08:43] VITALS: O2SAT 94
[2018-04-01 08:45] VITALS: BP 126/67; TEMP 97.7
[2018-04-01] MEDS: POLYETHYL GLY 3350 17 GM/DOSE PO SCH (09:00)
[2018-04-01] MEDS: ENOXAPARIN 30 MG/0.3 ML SQ SCH (09:42)
[2018-04-01] MEDS: DOCUSATE NA 100 MG CAP PO SCH (09:43)
--- NOTE | 2018-04-01 16:34 | PN ---
Date of Progress Note: 04/01/2018 Subjective: The patient is seen and examined. Chart reviewed and case discussed with RN. The patie nt doing well with physical therapy and range of motion exercises. Pain is well controlled; passing gas, however, no bowel movement today. Medications: List reviewed. Physical Examination: Vital Signs: Temperature 97.7, heart rate 91, blood pressure 126/67, respirations 20, O2 97% on room air. General: Awake, alert, oriented x3. Not in any acute distress. Obese female. CV: S1, S2. Regular rate and rhythm. Peripheral pulses present. Respiratory: Moving air well bilaterally. No wheezing. Gastrointestinal: Abdomen is soft, nontender, nondistended. Positive bowel sounds. Extremities: No clubbing, cyanosis, or edema. Musculoskeletal: Right knee bandaged and covered with Breezy wrap. Good range of motion. Neurologic: Nonfocal. Sensation intact to light touch. Skin: Left knee incision site clean, dry, intact. Laboratory Data: H and H 9.1, 27.1. Assessment And Plan: A 53-year-old female with: 1.Right knee total arthroplasty, doing well postoperatively. Continue Lovenox for deep venous throm bosis prophylaxis. Pain is well controlled. Management per Dr. Machado. 2.Postoperative anemia, likely due to acute blood loss. We will monitor H and H, transfuse if below 7. 3.Intermittent asthma, well controlled. Use albuterol p.r.n. 4.Obesity, BMI 32.6. 5.Gastrointestinal and deep venous thrombosis prophylaxis addressed. Continue to follow the patient along with you. BRANDI Voice ID: [id number] Report ID: [id number]
== END 2018-04-01 12:24 | disposition home or self-care (01) | DRG 470 ==
LOC: OR 10:33 → 2ND 15:14
PROVIDERS: ADMIT Orthopaedic Surgery; ATTEND Orthopaedic Surgery
PROC: 0SRC0J9 Replacement of Right Knee Joint with Synthetic Substitute, Cemented, Open Approach (ICD-10-PCS; principal; 2018-03-30 12:00)
DX: M17.11 Unilateral primary osteoarthritis, right knee (principal); D62 Acute posthemorrhagic anemia; J45.909 Unspecified asthma, uncomplicated; E66.9 Obesity, unspecified; Z68.32 Body mass index [BMI] 32.0-32.9, adult
CPT/HCPCS: 36415; 80048; 81003; 81015; 85014; 85018; 85025; 85610; 85730; 86850; 86900; 86901; 88304; 88311; 97116; 97139; 97161; J0690; J1100; J1170; J1650; J2175; J2250; J2270; J2405; J2704; J2710; J2795; J3010